=== PATIENT | male | born 1975 | race Two or more races ===

== ENCOUNTER 2018-09-21 06:09 | Emergency (ER) | payer MEDICARE, MEDICAID ==
[~2018-09-21] VITALS: Ht 165.1 cm; Wt 68.1 kg
[2018-09-21 06:37] VITALS: BP 105/65
[2018-09-21] MEDS ORDERED: NAPR-1154 PO (06:48)
== END 2018-09-21 07:22 | disposition home or self-care (01) ==
LOC: ER 06:09
DX: L72.8 Other follicular cysts of the skin and subcutaneous tissue (principal); Z79.899 Other long term (current) drug therapy
CPT/HCPCS: 71101; 99283